=== PATIENT | male | born 1980 | race Caucasian/White ===

== ENCOUNTER 2017-12-10 11:10 | Emergency (ER) | payer SELFPAY ==
[2017-12-10] MEDS ORDERED: AZITHROMYCIN 250 MG TAB PO ONE (12:00)
--- NOTE | 2017-12-10 12:03 | EDPHY ---
H & P Stated Complaint: hematuria /pain at tip of penis Time Seen by Provider: 12/10/17 11:34 HPI/ROS: CHIEF COMPLAINT: Dysuria, penile discharge HISTORY OF PRESENT ILLNESS: The patient presents to the ED with dysuria and penile discharge reminiscent of a prior gonococcal infection 2 years ago. The patient does have a history of kidney stones but denies any flank pain. The patient denies fever, abdominal pain or acute respiratory complaints. The patient denies significant past medical history. REVIEW OF SYSTEMS: A comprehensive 10 point review of systems is otherwise negative aside from elements mentioned in the history of present illness. Source: Patient Exam Limitations: No limitations - Personal History Current Tetanus Diphtheria and Acellular Pertussis (TDAP): Unsure - Medical/Surgical History Hx Asthma: No Hx Chronic Respiratory Disease: No Hx Diabetes: No Hx Cardiac Disease: No Hx Renal Disease: No Hx Cirrhosis: No Hx Alcoholism: No Hx HIV/AIDS: No Hx Splenectomy or Spleen Trauma: No Other PMH: kidney stone - Social History Smoking Status: Current every day smoker - Physical Exam Exam: General Appearance: Alert, no distress Eyes: Pupils equal and round no pallor or injection ENT, Mouth: Mucous membranes moist Respiratory: There are no retractions, lungs are clear to auscultation Cardiovascular: Regular rate and rhythm Gastrointestinal: Abdomen is soft and nontender, no masses, bowel sounds normal Neurological: 5/5 strength all 4 extremities : Purulent discharge from urethral meatus Skin: Warm and dry, no rashes Musculoskeletal: Neck is supple nontender Extremities: symmetrical, full range of motion Psychiatric: Patient is oriented X 3, there is no agitation Constitutional: Initial Vital Signs Temperature (C) 36.5 C 12/10/17 11:11 Heart Rate 95 12/10/17 11:11 Respiratory Rate 18 12/10/17 11:11 Blood Pressure 141/84 H 12/10/17 11:11 O2 Sat (%) 97 12/10/17 11:11 O2 Delivery Mode Room Air Allergies/Adverse Reactions: No Known Allergies Allergy (Unverified 12/10/17 11:11) Home Medications: Medication Instructions Recorded NK [No Known Home Meds] 12/10/17 Medical Decision Making ED Course/Re-evaluation: The patient will be treated for gonorrhea and Chlamydia with ceftriaxone and 1 g of azithromycin. Laboratory studies have been obtained. - Data Points Laboratory Results: 12/10/17 12/10/17 11:20 11:20 Urine Color YELLOW Urine Appearance CLEAR Urine pH 5.0 (5.0-7.5) Ur Specific [place] 1.025 (1.002-1.030) Urine Protein NEGATIVE (NEGATIVE) Urine Ketones NEGATIVE (NEGATIVE) Urine Blood NEGATIVE (NEGATIVE) Urine Nitrate NEGATIVE (NEGATIVE) Urine Bilirubin NEGATIVE (NEGATIVE) Urine Urobilinogen NEGATIVE EU EU (0.2-1.0) Ur Leukocyte Esterase TRACE H (NEGATIVE) Urine RBC 3-5 /hpf H /hpf (0-3) Urine WBC 10-15 /hpf H /hpf (0-3) Ur Epithelial Cells NONE SEEN /lpf /lpf (NONE-1+) Urine Bacteria TRACE /hpf H /hpf (NONE SEEN) Hyaline Casts 1-5 /lpf /lpf (0-1) Urine Mucus TRACE /lpf /lpf (NONE-1+) Urine Glucose NEGATIVE (NEGATIVE) C.trachomatis RNA (TMA) Pending N.gonorrhoeae RNA (TMA) Pending Medications Given: Discontinued Medications Azithromycin (Zithromax) 1,000 mg PO EDNOW ONE PRN Reason: Protocol Stop: 12/10/17 12:01 Last Admin: 12/10/17 12:04 Dose: 1,000 mg Ceftriaxone Sodium (Rocephin Im Syringe) 250 mg IM EDNOW ONE PRN Reason: Protocol Stop: 12/10/17 12:00 Last Admin: 12/10/17 13:09 Dose: 250 mg Departure - Departure Disposition: Home, Routine, Self-Care Clinical Impression: Urethritis Condition: Good Instructions: Gonorrhea (ED) Additional Instructions: 1. You have been treated for possible gonorrhea and Chlamydia in the emergency department today with 2 separate antibiotics. No additional therapy is needed. 2. Please contact the emergency department in 4 days at to check the results of your test. 3. Your partners will need to be treated for STDs if you are found to have gonorrhea or chlamydia. Referrals: NONE *PRIMARY CARE P,. [Primary Care Provider] - As per Instructions
[2017-12-10 12:19] VITALS: BP 127/82
[2017-12-12 12:17] LABS: GC AMPLIFICATION GENPROBE POSITIVE (NEGATIVE)
== END 2017-12-10 13:10 | disposition home or self-care (01) ==
DX: N34.2 Other urethritis (principal); F17.210 Nicotine dependence, cigarettes, uncomplicated; Z87.442 Personal history of urinary calculi
CPT/HCPCS: J0696

== ENCOUNTER 2017-12-30 07:57 | Day surgery (SDC) | payer MEDICAID ==
[2017-12-30] MEDS ORDERED: ceFAZolin 2 GM/DEXTROSE 100 ML IV ONE (08:10)
[2017-12-30] MEDS ORDERED: LR 1,000 ML IV ONE (08:11)
[2017-12-30] MEDS ORDERED: LIDOCAINE 1% 2 ML INJ ID PRN (08:40)
--- NOTE | 2017-12-30 11:45 | PDHPUP ---
History & Physical Update H&P update statement: This history and physical update is based on an assessment of the patient which was completed after admission or registration (within 24 hours), but prior to the surgery/procedure. H&P update: H&P reviewed & patient examined, no change in patient's condition since H&P completed
[2017-12-30] MEDS ORDERED: CEFAZOLIN 2 GM/DEXTROSE/100 ML BAG IV ONE (11:47)
--- NOTE | 2017-12-30 11:54 | PDANEPAE ---
ANE History of Present Illness wound closure R arm ANE Past Medical History - Cardiovascular History Hx Hypertension: No Hx Arrhythmias: No Hx Chest Pain: No Hx Coronary Artery / Peripheral Vascular Disease: No Hx CHF / Valvular Disease: No Hx Palpitations: No - Pulmonary History Hx COPD: No Hx Asthma/Reactive Airway Disease: No Hx Recent Upper Respiratory Infection: No Hx Oxygen in Use at Home: No Hx Sleep Apnea: No Sleep Apnea Screening Result - Last Documented: Negative - Neurologic History Hx Cerebrovascular Accident: No Hx Seizures: No Hx Dementia: No - Endocrine History Hx Diabetes: No - Renal History Hx Renal Disorders: Yes Renal History Comment: kidney stones - Liver History Hx Hepatic Disorders: No - Neurological & Psychiatric Hx Hx Neurological and Psychiatric Disorders: No - Cancer History Hx Cancer: No - Congenital Disorder History Hx Congenital Disorders: No - GI History Hx Gastrointestinal Disorders: No - Other Health History Other Health History: wound vac to RUE. dental pain to tooth currently- going to dentist tuesday12/31/17 - Chronic Pain History Chronic Pain: No - Surgical History Prior Surgeries: 12/19/17 i&d to [facility] with Harman TAYLOR Review of Systems Review of Systems: - Exercise capacity METS (RN): 4 METS ANE Patient History - Allergies Allergies/Adverse Reactions: No Known Allergies Allergy (Verified 12/29/17 16:32) - Home Medications Home medications: home medication list seen and reviewed Home Medications: Amoxicillin/Clavulanate Pot [Augmentin 875 MG TAB (*)] 12/29/17 [Last Taken ] Ibuprofen 12/29/17 [Last Taken 12/29/17] Percocet 5-325 mg Tablet 12/30/17 [Last Taken 12/30/17 06:30] - NPO status NPO Since - Liquids (Date): 12/30/17 NPO Since - Liquids (Time): 06:30 (grapes) NPO Since - Solids (Date): 12/29/17 (OJ) NPO Since - Solids (Time): 06:00 - Anes Hx Anes Hx: no prior problems - Smoking Hx Smoking Status: Heavy smoker - Alcohol Use Alcohol Use: None - Family Anes Hx Family Anes Hx: none Family Hx Anesthesia Complications: none ANE Labs/Vital Signs - Vital Signs Blood Pressure: 124/84 Heart Rate: 70 Respiratory Rate: 18 O2 Sat (%): 95 Height: 187.96 cm Weight: 79.379 kg ANE Physical Exam - Airway Neck exam: FROM Mallampati Score: Class 2 Mouth exam: normal dental/mouth exam - Pulmonary Pulmonary: no respiratory distress - Cardiovascular Cardiovascular: regular rate and rhythym - ASA Status ASA Status: II ANE Anesthesia Plan Anesthesia Plan: GA w LMA
[2017-12-30] MEDS ORDERED: ONDANSETRON 4 MG/2 ML VIAL ONE (12:17)
[2017-12-30] MEDS ORDERED: PROPOFOL/EMULSION 500 MG/50 ML BOTTLE IV ONE (12:17)
[2017-12-30] MEDS ORDERED: fentaNYL 100 MCG/2 ML INJ ONE ×2 (12:17→13:33)
[2017-12-30] MEDS ORDERED: DEXAMETHASONE 4 MG/ML VIAL ONE (12:17)
[2017-12-30] MEDS ORDERED: LIDOCAINE 2% JELLY 5 ML TUBE ONE (12:18)
[2017-12-30] MEDS ORDERED: LIDOCAINE 2% 100 MG/5 ML SYR ONE (12:18)
[2017-12-30] MEDS ORDERED: BUPIVACAINE 0.5% 30 ML SDV ONE (12:21)
[2017-12-30] MEDS ORDERED: THROMBIN (BOVINE) 5,000 UNIT VIAL TP ONE (13:01)
[2017-12-30] MEDS ORDERED: oxyCODONE IR 5 MG TAB PO PRN (13:03)
[2017-12-30] MEDS ORDERED: HYDROCODONE/APAP 5/325 TAB PO PRN (13:03)
[2017-12-30] MEDS ORDERED: NALOXONE HCL 0.4 MG/ML INJ IVP PRN (13:03)
[2017-12-30] MEDS ORDERED: ALBUTEROL 3 ML DEYVIAL IH PRN (13:03)
[2017-12-30] MEDS ORDERED: DEXAMETHASONE 4 MG/ML VIAL IVP PRN (13:03)
[2017-12-30] MEDS ORDERED: MEPERIDINE 25 MG/0.5 ML AMP IVP PRN (13:03)
[2017-12-30] MEDS ORDERED: ACETAMINOPHEN 500 MG TAB PO PRN (13:03)
[2017-12-30] MEDS ORDERED: LR 500 ML IV PRN (13:03)
[2017-12-30] MEDS ORDERED: LABETALOL HCL 5 MG/ML 20 ML MDV IVP PRN (13:03)
[2017-12-30] MEDS ORDERED: ONDANSETRON 4 MG/2 ML VIAL IVP PRN (13:03)
[2017-12-30] MEDS ORDERED: PHENYLEPHRINE HCL 100 MCG/ML SYR IVP PRN (13:03)
[2017-12-30] MEDS ORDERED: METOCLOPRAMIDE 10 MG/2 ML VIAL IVP PRN (13:03)
[2017-12-30] MEDS ORDERED: PROMETHAZINE HCL 25 MG/ML INJ IVP PRN (13:03)
--- NOTE | 2017-12-30 13:22 | POSTOPPROG ---
Post Op Note Date of Operation: 12/30/17 Surgeon: Vega Elena [employer] Mechanical Engineer: None Anesthesiologist: Jus Anesthesia: GET(General Endotracheal) Pre-op Diagnosis: Right upper arm wound Post-op Diagnosis: same Indication: same Procedure: Delayed primary wound closure, R upper arm Findings: Healthy granulation tissue Inf/Abcess present in the surg proc area at time of surgery?: No Depth: Deep Incisional (Fascial) EBL: Minimal
[2017-12-30] MEDS: fentaNYL 100 MCG/2 ML INJ IVP PRN ×2 (13:34→13:39)
[2017-12-30] MEDS ORDERED: oxyCODONE IR 5 MG TAB ONE (14:33)
[2017-12-30 14:53] VITALS: BP 126/74
--- NOTE | 2017-12-30 15:17 | POSTANESTH ---
Post Anesthetic Evaluation Cardiovascular Status: Normal, Stable Respiratory Status: Normal, Stable Level of Consciousness/Mental Status: Can Participate in Eval Pain Control: Adequate, Prn Tx Ordered Nausea/Vomiting Control: Adequate, Prn Tx Ordered Complications Possibly Related to Anesthesia: None Noted
--- NOTE | 2018-01-08 17:22 | GOP ---
DATE OF OPERATION: 12/30/2017 SURGEON: Vega Elena MD CERTIFIED MEDICATION AIDE: There was no field administrative assistant. ANESTHESIOLOGIST: Dr. Luu. PREOPERATIVE DIAGNOSIS: Right upper arm granulating wound. POSTOPERATIVE DIAGNOSIS: Right upper arm granulating wound. PROCEDURE PERFORMED: Delayed primary closure, right upper arm, with advancement flap closure. FINDINGS: Patient found to have extremely healthy granulation tissue in an upper arm abscess wound. DESCRIPTION OF PROCEDURE: The patient was taken to the operating room where he received satisfactory general endotracheal anesthesia by Dr. Luu. He was placed in the supine position. The right arm was draped freely and then placed over the patient's chest. The upper arm outside wound was debrided . Subcu and skin flaps were developed anteriorly and posteriorly and then brought together with inte rrupted 2-0 Vicryl sutures. The skin was then closed with a running 3-0 Monoderm Quill suture for th e skin. The wound was infiltrated with 0.5% Marcaine. There were no complications. He tolerated th e procedure well. Blood loss was negligible. He was taken to the recovery room in good condition. /[id number]/MODL
--- NOTE | 2018-01-09 11:21 | PQFORM ---
PHYSICIAN QUERY FORM Needs Your Response This query form is being sent to you to assure this patient record is coded properly. Please respond to the question below: HAND TIER QUESTION: Dear Dr. Elena, For coding purposes (there are different code choices for the sizes of wounds ) please clarify below the size of the wound repaired on 12/30/2017. 2.5 cm or less 2.6 cm to 7.5 cm 7.6 cm to 12.5 cm 12.3 cm to 20.0 cm 20.1 cm to 30.0 cm over 30.0 cm Thank you JUAN Wright [facility]/Coding Dept. [phone] INSTRUCTIONS FOR RESPONSE: Answer question by clicking on the "Edit Document" button. Move cursor to area below the stars. When complete, hit "Save." Click on the "Sign" button, then click "Sign" again. Type in your PIN and hit "Enter." 18CM MTDD
== END 2017-12-30 15:07 | disposition home or self-care (01) ==
LOC: FSGY 07:57
PROVIDERS: ATTEND Surgery
PROC: 0JQD0ZZ Repair Right Upper Arm Subcutaneous Tissue and Fascia, Open Approach (ICD-10-PCS; principal; 2017-12-30 09:30)
DX: Z43.8 Encounter for attention to other artificial openings (principal)
CPT/HCPCS: J0690; J1100; J2001; J2270; J2405; J2704; J3010